=== PATIENT | female | born 1975 | race Caucasian/White ===

== ENCOUNTER 2018-09-18 18:46 | Emergency (ER) | payer SELFPAY ==
[~2018-09-18] VITALS: Ht 154.9 cm; Wt 55.3 kg
[2018-09-18 18:50] VITALS: BP 131/85
[2018-09-18 19:00] VITALS: BP 131/85
--- NOTE | 2018-09-18 19:00 | NUR ---
BIB SELF. AAO X4 C/O NAUSEA, GENERALIZED ABD BURNING PAIN, BACK PAIN, MIDCHEST PAIN X YESTERDAY. PT REPORTS PAINFUL URINATION. WENT TO [facility] YESTERDAY & GOT A SHOT FOR PAIN. PT STATED SHE IS FROM [facility] AND CAN NOT TAKE NARCOTIC PAIN MEDS. PT DENIES SOB, FEVER, VOMITING. STEADY GAIT. HOB UP. BED SIDE RAILS UP X1. ON LOW BED POSITION, LOCKED. ER MADE AWARE OF PT STATUS.
--- NOTE | 2018-09-18 19:07 | NUR ---
TAMICA CARRERA AT BEDSIDE FOR PT EVAL
[2018-09-18] MEDS ORDERED: ALUMINUM HYD/MAG/SIMETHICONE 30 ML, DICYCLOMINE HCL LIQUID 20 MG, LIDOCAINE VISCOUS 2% ... PO ONE ×3 (19:20)
[2018-09-18 19:25] LABS: BILIRUBIN,URINE NEGATIVE (NEGATIVE); BLOOD, URINE NEGATIVE (NEGATIVE); COLOR,URINE YELLOW (YELLOW); LEUKOCYTE ESTERASE ,URINE 2+ (NEGATIVE); NITRITE, URINE POSITIVE (NEGATIVE); PH,URINE 7.5 (5.0-9.0); UGLUCOSE TRACE (NEGATIVE)
[2018-09-18] MEDS ORDERED: KETOROLAC 30 MG/ML VIAL IM ONE (19:25)
[2018-09-18 19:26] LABS: APPEARANCE,URINE HAZY (CLEAR)
[2018-09-18 19:31] LABS: RBC,URINE 0-5 /HPF (0-5); WBC,URINE 16-25 (MOD) /HPF (0-5)
[2018-09-18 19:32] LABS: TRICHOMONAS,URINE Few /HPF (None Seen)
[2018-09-18 19:51] LABS: BASOPHILS # (AUTO) 0.1 K/uL (0.00-0.22); BASOPHILS % (AUTO) 1.6 % (0.0-2.0); EOSINOPHILS # (AUTO) 0.2 K/uL (0-0.4); EOSINOPHILS % (AUTO) 1.9 % (0.0-4.0); HEMATOCRIT 39.7 % (36-48); LYMPHOCYTES # (AUTO) 0.9 K/uL (2.5-16.5); LYMPHOCYTES % (AUTO) 10.7 % (20.5-51.1); MEAN CORPUSCULAR HEMOGLOBIN 26 pg (27-31); MEAN CORPUSCULAR HGB CONC 33 g/dL (33-37); MEAN CORPUSCULAR VOLUME 79.2 fL (80-94); MONOCYTES # (AUTO) 0.5 K/uL (0.8-1.0); MONOCYTES % (AUTO) 5.4 % (1.7-9.3); NEUTROPHILS # (AUTO) 6.9 K/uL (1.8-7.7); NEUTROPHILS % (AUTO) 80.4 % (42.2-75.2); PLATELET COUNT (AUTO) 247 K/uL (140-450); RED BLOOD CELL COUNT(AUTO) 5.01 MIL/uL (4.20-5.40); WHITE BLOOD COUNT (AUTO) 8.6 K/uL (4.8-10.8)
[2018-09-18 19:52] LABS: ANION GAP 10.1 (8-16); CARBON DIOXIDE 29.9 mmol/L (21-32); CREATININE 0.6 mg/dL (0.6-1.3)
[2018-09-18 19:58] LABS: ALBUMIN 3.8 g/dL (3.4-5.0); TOTAL BILIRUBIN 0.2 mg/dL (0.0-1.0)
== END 2018-09-18 20:05 | disposition home or self-care (01) ==
LOC: MED 18:46
DX: N39.0 Urinary tract infection, site not specified (principal); I10 Essential (primary) hypertension; F41.9 Anxiety disorder, unspecified
CPT/HCPCS: 36415; 80053; 81001; 81025; 83690; 85025; 87086; 96372; 99283; J1885

== ENCOUNTER 2018-10-06 18:55 | Inpatient (IN) | payer MEDICAID ==
[~2018-10-06] VITALS: Ht 152.4 cm; Wt 54.4 kg
[2018-10-06 19:09] VITALS: BP 176/109
--- NOTE | 2018-10-06 19:26 | NUR ---
42 YEAR OLD FEMALE BROUGHT IN BY SELF C/O OF CHEST PAIN THAT RADIATES TO THE RIGHT SHOULDER SINCE 5AM TODAY. PT PAIN LEVEL IS 7/10. Addendum: 10/06/18 at 1931 by [email or web address] 42 YEAR OLD FEMALE BROUGHT IN BY SELF C/O OF CHEST PAIN THAT RADIATES TO THE RIGHT SHOULDER SINCE 5AM TODAY. PT PAIN LEVEL IS 7/10. A&O X4 MED HX OF HTN CURRENT BP 177/101. SAFETY MEASURES IN PLACE. WAITING FOR MD TO EVALUATE PT. EMD MADE AWARE OF STATUS.
--- NOTE | 2018-10-06 19:35 | NUR ---
EKG PERFORMED AT BEDSIDE
[2018-10-06] MEDS ORDERED: ENALAPRILAT 2.5 MG/2 ML VIAL IVP ONE (19:45)
[2018-10-06] MEDS ORDERED: hydrALAZINE 20 MG/ML VIAL IVP ONE (19:45)
--- NOTE | 2018-10-06 21:03 | NUR ---
RAD AT BEDSIDE
[2018-10-06 21:17] LABS: BASOPHILS # (AUTO) 0.1 K/uL (0.00-0.22); BASOPHILS % (AUTO) 0.6 % (0.0-2.0); EOSINOPHILS # (AUTO) 0.1 K/uL (0-0.4); HEMATOCRIT 43.4 % (36-48); HEMOGLOBIN 14.4 g/dL (12.0-16.0); LYMPHOCYTES # (AUTO) 2.5 K/uL (2.5-16.5); LYMPHOCYTES % (AUTO) 25.8 % (20.5-51.1); MEAN CORPUSCULAR HEMOGLOBIN 27 pg (27-31); MEAN CORPUSCULAR HGB CONC 33 g/dL (33-37); MEAN CORPUSCULAR VOLUME 80.3 fL (80-94); MONOCYTES # (AUTO) 0.7 K/uL (0.8-1.0); NEUTROPHILS # (AUTO) 6.4 K/uL (1.8-7.7); NEUTROPHILS % (AUTO) 65.6 % (42.2-75.2); PLATELET COUNT (AUTO) 324 K/uL (140-450); RED CELL DISTRIBUTION WIDTH 19.7 % (11.6-13.7); WHITE BLOOD COUNT (AUTO) 9.7 K/uL (4.8-10.8)
[2018-10-06] MEDS ORDERED: NITROGLYCERIN 2% 1 GM PKT TP ONE (21:30)
[2018-10-06] MEDS ORDERED: ASPIRIN 325 MG TAB PO ONE (21:30)
[2018-10-06] MEDS ORDERED: MORPHINE SULFATE 4 MG/ML SYR IVP ONE (21:30)
[2018-10-06 21:32] LABS: ANION GAP 14.3 (8-16); CREATININE 0.6 mg/dL (0.6-1.3); POTASSIUM 3.3 mmol/L (3.5-5.1)
[2018-10-06 21:37] LABS: ALBUMIN 4.3 g/dL (3.4-5.0); TOTAL BILIRUBIN 0.4 mg/dL (0.0-1.0)
[2018-10-06] MEDS ORDERED: KETOROLAC 30 MG/ML VIAL IVP ONE (22:10)
[2018-10-06] MEDS ORDERED: ONDANSETRON 4 MG/2 ML VIAL IVP PRN (22:15)
[2018-10-06] MEDS ORDERED: HYDROcodone/APAP 7.5/325 MG 1 TAB PO PRN (22:15)
[2018-10-06] MEDS ORDERED: NITROGLYCERIN 0.4 MG TAB SL PRN (22:20)
--- NOTE | 2018-10-06 22:40 | NUR ---
Patient will be admitted to care of Dr Keys. Admited to Tele. Will go to room 120A. Belongings list completed. Report to Cruz GLOVER. PT VSS.
[2018-10-06 22:45] VITALS: BP 128/58
--- NOTE | 2018-10-06 22:45 | NUR ---
RECEIVED PT FROM ER NURSE. PT ABLE TO AMBULATE FROM ER BED TO [facility] BED. NO SOB OR ANY RESPIRATORY DISTRESS NOTED. ON TELE MONITORING. DX: HYPERTENSIVE URGENCY ANGINA. ORIENT ROOM TO PT. SWAB NOSE. SKIN INTACT, WARM AND DRY TO TOUCH. IV SITE ON R AC, 20G, PATENT, INTACT, AND ASYMPTOMATIC. PT C/O HEADACHE, 06/24, WILL MEDICATE. NITRO PATCH REMOVED BY RESIDENT DR. MELGAR. BED IN LOW POSITION, CALL LIGHT WITHIN REACH.
--- NOTE | 2018-10-06 22:48 | NUR ---
Pt report given to Cruz GLOVER. Transfer of care at this time. PT VSS. PT pain level decreased 3/10 prior to transfer.
[2018-10-06 22:53] LABS: PROTHROMBIN TIME 11.6 secs (10.8-13.4)
[2018-10-06 22:59] LABS: FREE T4 (FREE THYROXINE) 1.16 ng/dL (0.76-1.46); MAGNESIUM 1.9 mg/dL (1.8-2.4); THYROID STIMULATING HORMONE 1.98 uIU/mL (0.34-3.74)
[2018-10-06] MEDS ORDERED: POTASSIUM CHLORIDE 10 MEQ TABER PO SCH (23:00)
[2018-10-06] MEDS: ACETAMINOPHEN 325 MG TAB PO PRN (23:13)
--- NOTE | 2018-10-06 23:17 | NUR ---
GIVEN K DUR, HEPARIN AND TYLENOL ORDERED. PT TOLERATED WELL. WILL CONTINUE TO MONITOR.
[2018-10-07] VITALS: BP 92/59
--- NOTE | 2018-10-07 01:30 | NUR ---
PT SLEEPING IN BED. NO ACUTE DISTRESS NOTED. WILL CONTINUE TO MONITOR.
--- NOTE | 2018-10-07 03:45 | NUR ---
PT SLEEPING IN BED. NO ACUTE DISTRESS NOTED. WILL CONTINUE TO MONITOR.
[2018-10-07 04:00] VITALS: BP 105/65
--- NOTE | 2018-10-07 05:50 | NUR ---
PT SLEEPING IN BED. NO SOB NOTED. BREATHING EVEN AND UNLABORED. BED IN LOW POSITION. CALL LIGHT WITHIN REACH.
[2018-10-07 07:10] LABS: ANION GAP 12.8 (8-16); CARBON DIOXIDE 29.1 mmol/L (21-32); CREATININE 0.9 mg/dL (0.6-1.3); POTASSIUM 3.9 mmol/L (3.5-5.1)
[2018-10-07 07:16] LABS: BASOPHILS % (AUTO) 0.3 % (0.0-2.0); EOSINOPHILS # (AUTO) 0.2 K/uL (0-0.4); EOSINOPHILS % (AUTO) 2.6 % (0.0-4.0); HEMATOCRIT 42.7 % (36-48); HEMOGLOBIN 14.4 g/dL (12.0-16.0); LYMPHOCYTES # (AUTO) 2.1 K/uL (2.5-16.5); LYMPHOCYTES % (AUTO) 27.9 % (20.5-51.1); MEAN CORPUSCULAR HEMOGLOBIN 27 pg (27-31); MEAN CORPUSCULAR HGB CONC 34 g/dL (33-37); MEAN CORPUSCULAR VOLUME 80.5 fL (80-94); MONOCYTES # (AUTO) 0.5 K/uL (0.8-1.0); MONOCYTES % (AUTO) 7.1 % (1.7-9.3); NEUTROPHILS # (AUTO) 4.7 K/uL (1.8-7.7); NEUTROPHILS % (AUTO) 62.1 % (42.2-75.2); PLATELET COUNT (AUTO) 306 K/uL (140-450); RED CELL DISTRIBUTION WIDTH 19.4 % (11.6-13.7); WHITE BLOOD COUNT (AUTO) 7.5 K/uL (4.8-10.8)
[2018-10-07 07:24] LABS: PHOSPHORUS 4.8 mg/dL (2.5-4.9)
--- NOTE | 2018-10-07 07:25 | NUR ---
ENDORSED PT TO DAY SHIFT NURSE. PT IN STABLE CONDITION.
--- NOTE | 2018-10-07 07:35 | NUR ---
URINE SAMPLE WAS COLLECTED AND SENT TO LAB
--- NOTE | 2018-10-07 07:40 | NUR ---
PATIENT WAS RESTING COMFORTABLY. RESPIRATION EVEN, UNLABOR ON ROOM AIR. SKIN DRY AND WARM. IV PATENT AND INTACT. DENIED CP, SOB. PLAN OF CARE WAS DISCUSSED WITH PATIENT. BED AT LOW POSITION, SIDE RAILS UP. CALL LIGHT WITHIN REACH.
[2018-10-07 08:00] VITALS: BP 114/72
[2018-10-07 08:00] LABS: APPEARANCE,URINE SL CLOUDY (CLEAR); BILIRUBIN,URINE NEGATIVE (NEGATIVE); BLOOD, URINE NEGATIVE (NEGATIVE); COLOR,URINE YELLOW (YELLOW); LEUKOCYTE ESTERASE ,URINE 3+ (NEGATIVE); NITRITE, URINE NEGATIVE (NEGATIVE); UGLUCOSE NEGATIVE (NEGATIVE)
[2018-10-07 08:07] LABS: BARBITURATE, URINE NEG. ng/ml (NEG <=200); BENZODIAZEPINE, URINE NEG. ng/mL (NEG <=200); CANNABINOID, URINE NEG. ng/mL (NEG <=50); COCAINE, URINE NEG. ng/mL (NEG <=300); OPIATE, URINE NEG. ng/mL (NEG <=2000); PHENCYCLIDINE SCREEN,URINE NEG. ng/mL (NEG <=25)
[2018-10-07] MEDS ORDERED: ORE25 PO (08:08)
[2018-10-07 08:13] LABS: RBC,URINE 0-5 /HPF (0-5); WBC,URINE 60-80 /HPF (0-5)
[2018-10-07 08:14] LABS: TRICHOMONAS,URINE Rare /HPF (None Seen)
[2018-10-07] MEDS: LISINOPRIL 5 MG TAB PO SCH (08:38)
[2018-10-07] MEDS: METOPROLOL 25 MG TAB PO SCH ×2 (08:38→20:57)
[2018-10-07] MEDS: ATORVASTATIN 20 MG TAB PO SCH (08:38)
[2018-10-07] MEDS: ECOTRIN 81 MG TABEC PO SCH (08:38)
[2018-10-07] MEDS: DOCUSATE SODIUM 100 MG GELCAP PO SCH ×2 (08:39→20:57)
[2018-10-07] MEDS ORDERED: POTASSIUM CHLORIDE 40 MEQ, LIDOCAINE MPF 1% - 5 mL VIAL 25 MG in NACL 0.9% 250 ML IV ONE (09:20)
[2018-10-07] MEDS ORDERED: MAG SULF 2000 MG/WATER PREMIX 50 ML IV ONE (09:20)
--- NOTE | 2018-10-07 09:37 | NUR ---
DR. MARCELO WAS MADE AWARE OF PATIENT'S BP 91/32. OK TO CONTINUE TO MONITOR Addendum: 10/07/18 at 0938 by Leyda Nuñez RN WRONG PATIENT
--- NOTE | 2018-10-07 09:52 | NUR ---
PATIENT WAS AWAKE, ALERT, RESTING COMFORTABLY. RESPIRATION EVEN, UNLABOR ON ROOM AIR. NO DISTRESS NOTED AT THIS TIME
[2018-10-07] MEDS ORDERED: metroNIDAZOLE 500 MG TAB PO SCH (10:00)
[2018-10-07 12:00] VITALS: BP 94/61
--- NOTE | 2018-10-07 12:00 | NUR ---
PATIENT WAS SLEEPING COMFORTABLY. RESPIRATION EVEN, UNLABOR ON ROOM AIR. DENIED PAIN AT THIS TIME. NO DISTRESS NOTED. CALL LIGHT WITHIN REACH
--- NOTE | 2018-10-07 14:19 | NUR ---
PATIENT WAS AWAKE, ALERT, EATING COMFORTABLY. RESPIRATION EVEN, UNLABOR ON ROOM AIR. NO DISTRESS NOTED AT THIS TIME.
[2018-10-07 16:00] VITALS: BP 94/60
--- NOTE | 2018-10-07 16:00 | NUR ---
PATIENT WAS RESTING COMFORTABLY. RESPIRATION EVEN, UNLABOR ON ROOM AIR. NO DISTRESS NOTED AT THIS TIME. DENIED PAIN, SOB. CALL LIGHT WITHIN REACH
--- NOTE | 2018-10-07 18:13 | NUR ---
PATIENT WAS AWAKE, ALERT. IV PATENT AND INTACT. NO DISTRESS NOTED AT THIS TIME. FAMILY AT BEDSIDE
--- NOTE | 2018-10-07 19:14 | NUR ---
ENDORSEMENT GIVEN TO MAINTENANCE TRUCK DRIVER NURSE. PATIENT IS STABLE AT THIS TIME
--- NOTE | 2018-10-07 19:15 | NUR ---
RECEIVED BEDSIDE REPORT FROM DAY SHIFT NURSE JELLY. PATIENT IS AWAKE, ALERT, AND COOPERATIVE. RESPIRATION EVEN UNLABORED ON ROOM AIR. NO DISTRESS NOTED. SKIN IS WARM AND DRY. IV SALINE LOCK. PATIENT IS AMBULATORY AND ABLE TO MAKE NEEDS KNOWN. FAMILY AT BEDSIDE. PLAN OF CARE WAS DISCUSSED. ALL SAFETY MEASURES IN PLACE. BED IS AT LOW POSITION. CALL LIGHT WITHIN REACH AND VERBALIZES ITS USE. WILL CONTINUE TO MONITOR.
[2018-10-07 20:00] VITALS: BP 100/68
--- NOTE | 2018-10-07 20:00 | NUR ---
INITIAL ASSESSMENT DONE. VITALS WERE TAKEN. PATIENT IS IN STABLE CONDITION. WILL CONTINUE TO MONITOR.
--- NOTE | 2018-10-07 21:00 | NUR ---
ALL SCHEDULED MEDS WERE GIVEN. NO ASE NOTED. WILL CONTINUE TO MONITOR.
[2018-10-07] MEDS: ACETAMINOPHEN 325 MG TAB PO PRN (21:26)
--- NOTE | 2018-10-07 21:26 | NUR ---
PATIENT COMPLAINED OF HEADACHE 6/10 PRN PAIN MED ADMINISTERED PER ORDER. WILL CONTINUE TO MONITOR.
--- NOTE | 2018-10-07 22:33 | NUR ---
CHECKED PATIENT. PATIENT SLEEPING RESPIRATION EVEN UNLABORED ON ROOM AIR. NO DISTRESS NOTED. WILL CONTINUE TO MONITOR.
[2018-10-08] VITALS: BP 101/67
--- NOTE | 2018-10-08 | NUR ---
VITALS WERE TAKEN. PATIENT CONDITION STABLE. NO DISTRESS NOTED. WILL CONTINUE TO MONITOR
--- NOTE | 2018-10-08 02:00 | NUR ---
CHECKED PATIENT. PATIENT SLEEPING RESPIRATION EVEN UNLABORED ON ROOM AIR. NO DISTRESS NOTED. WILL CONTINUE TO MONITOR.
[2018-10-08 04:00] VITALS: BP 93/63
--- NOTE | 2018-10-08 04:00 | NUR ---
VITALS WERE TAKEN. PATIENT CONDITION STABLE. NO DISTRESS NOTED. WILL CONTINUE TO MONITOR.
--- NOTE | 2018-10-08 07:20 | NUR ---
ENDORSED PATIENT TO COUNTER PERSON NURSE. PATIENT IS STABLE AT THIS TIME
--- NOTE | 2018-10-08 07:21 | NUR ---
RECEIVED REPORT FROM PARADICHLOROBENZENE TENDER NURSE. PATIENT LYING DOWN IN BED SLEEPING, AROUSABLE BY VOICE. NO DISTRESS NOTED. DENIES ANY PAIN. AAOX4, CALM, COOPERATIVE, SKIN COLOR APPROPRIATE TO ETHNICITY, WARM TO TOUCH. SKIN INTACT. IV SITE INTACT, PATENT, AND ON SALINE LOCK. RESPIRATIONS EVEN, UNLABORED, ON ROOM AIR. ABDOMEN SOFT, NON-DISTENDED. REVIEWED PLAN OF CARE WITH PATIENT. PATIENT VERBALIZED UNDERSTANDING. SAFETY MEASURES IN PLACE, CALL LIGHT WITHIN REACH. WILL CONTINUE TO MONITOR.
[2018-10-08 08:00] VITALS: BP 104/76
--- NOTE | 2018-10-08 08:33 | NUR ---
PATIENT HAS BEEN SCREENED AND CATEGORIZED MODERATE NUTRITION RISK. PATIENT WILL BE SEEN WITHIN 3-5 DAYS OF ADMISSION. 10/09/18[address]
[2018-10-08] MEDS: METOPROLOL 25 MG TAB PO SCH (08:34)
[2018-10-08] MEDS: LISINOPRIL 5 MG TAB PO SCH (08:34)
[2018-10-08] MEDS: ATORVASTATIN 20 MG TAB PO SCH (08:34)
[2018-10-08] MEDS: DOCUSATE SODIUM 100 MG GELCAP PO SCH (08:34)
[2018-10-08] MEDS: ECOTRIN 81 MG TABEC PO SCH (08:34)
--- NOTE | 2018-10-08 08:39 | NUR ---
PATIENT SITTING IN BED WITH BREAKFAST TRAY IN FRONT. NO DISTRESS NOTED. DENIES ANY PAIN. SCHEDULED MEDICATIONS DUE GIVEN. WILL CONTINUE TO MONITOR.
--- NOTE | 2018-10-08 10:30 | NUR ---
PATIENT LYING DOWN IN BED SLEEPING, AROUSABLE BY VOICE. NO DISTRESS NOTED. CONDITION UNCHANGED. WILL CONTINUE TO MONITOR.
[2018-10-08] MEDS ORDERED: LACT10CA1 PO (10:45)
[2018-10-08] MEDS ORDERED: CEPH250C16 PO (10:45)
[2018-10-08 12:00] VITALS: BP 97/68
--- NOTE | 2018-10-08 12:58 | NUR ---
PATIENT SITTING DOWN IN BED ALL DRESSED UP AND READY TO GO. FAMILY MEMBER AT BEDSIDE. DISCHARGE INSTRUCTIONS PROVIDED TO PATIENT IN PREFERRED LANGUAGE OF [facility]. INSTRUCTIONS ON FOLLOW-UP VISIT WITH PCP, NEW/CHANGED MEDICATION REGIMEN AND SIDE EFFECTS, TRICHOMONAS STI, AND DIET REGIMEN PROVIDED. ANSWERED ALL OF PATIENT/FAMILY QUESTIONS REGARDING DISCHARGE. PATIENT/FAMILY VERBALIZED UNDERSTANDING. IV SITE REMOVED WITH MINIMAL BLOOD AND LUMEN COMPLETELY INTACT. ID BANDS REMOVED. PATIENT TO FINISH EATING LUNCH THEN GO HOME VIA PRIVATE VEHICLE. WILL CONTINUE TO MONITOR.
== END 2018-10-08 13:10 | disposition home or self-care (01) | DRG 812 ==
LOC: MED 18:55 → MTU 22:20
PROVIDERS: ADMIT General Practice; ATTEND General Practice
DX: T43.621A Poisoning by amphetamines, accidental (unintentional), initial encounter (principal); A59.9 Trichomoniasis, unspecified; E78.5 Hyperlipidemia, unspecified; E87.6 Hypokalemia; F15.10 Other stimulant abuse, uncomplicated; N39.0 Urinary tract infection, site not specified; I16.0 Hypertensive urgency; F17.200 Nicotine dependence, unspecified, uncomplicated; I10 Essential (primary) hypertension; Z98.891 History of uterine scar from previous surgery; Y92.89 Other specified places as the place of occurrence of the external cause
CPT/HCPCS: 36415; 71045; 80048; 80053; 80305; 81001; 82150; 83036; 83690; 83735; 83880; 84100; 84439; 84443; 84484; 85025; 85379; 85610; 85730; 87081; 87086; 93005; 96374; 96375; 99285; J0360; J0696; J1644; J1885; J2270; J3490; J7030; J7060

== ENCOUNTER 2018-11-14 21:44 | Emergency (ER) | payer MEDICAID ==
[~2018-11-14] VITALS: Ht 154.9 cm; Wt 52.7 kg
[~2018-11-14 21:44] MED LIST: CEPH250C16 PO; LACT10CA1 PO; ORE25 PO
[2018-11-14 21:45] VITALS: BP 157/98
--- NOTE | 2018-11-14 21:45 | NUR ---
TO BED # 02 AMBULATORY
--- NOTE | 2018-11-14 21:45 | NUR ---
43 Y/O FEMALE PRESENTS TO ED WITH C/O LEFT FLANK PAIN 5/10. LAST BM X3 DAYS AGO. NASUEA WITHOUT VOMITING. NO CHANGE IN URINATION. ABD SOFT AND NON-TENDER. VSS. POSITIONED IN BED FOR COMFORT. ER MD AWARE. CONTINUE TO MONITOR.
[2018-11-14 22:30] LABS: APPEARANCE,URINE CLEAR (CLEAR); BILIRUBIN,URINE NEGATIVE (NEGATIVE); BLOOD, URINE TRACE-I (NEGATIVE); COLOR,URINE YELLOW (YELLOW); LEUKOCYTE ESTERASE ,URINE TRACE (NEGATIVE); NITRITE, URINE NEGATIVE (NEGATIVE); PH,URINE 6.5 (5.0-9.0); UGLUCOSE NEGATIVE (NEGATIVE)
[2018-11-14 22:48] LABS: RBC,URINE NONE SEEN /HPF (0-5); WBC,URINE 0-5 /HPF (0-5)
[2018-11-15] MEDS ORDERED: MAGNESIUM CITRATE 300 ML BTL PO ONE
--- NOTE | 2018-11-15 00:02 | NUR ---
PT DRANK MAG CITRATE. CONTINUE TO MONITOR.
[2018-11-15 00:11] VITALS: BP 133/75
--- NOTE | 2018-11-15 00:11 | NUR ---
DISCHARGE PAPERS GIVEN TO PT. STATES 2/10 TOLLERABLE PAIN. RX OF LACTULOSE GIVEN. SIDE EFFECTS EXPLAINED. INSTRUCTED TO F/U WITH PCP AND WHEN TO RETURN TO ER. PT VERBALLIZED UNDERSTANDING OF DC INSTRUCTIONS. ALL QUESTIONS ANSWERED.
== END 2018-11-15 00:11 | disposition home or self-care (01) ==
LOC: MED 21:44
DX: K59.00 Constipation, unspecified (principal); I10 Essential (primary) hypertension; Z87.442 Personal history of urinary calculi; Z79.899 Other long term (current) drug therapy
CPT/HCPCS: 81001; 81025; 99284

== ENCOUNTER 2019-01-09 22:23 | Emergency (ER) | payer SELFPAY ==
[~2019-01-09] VITALS: Ht 154.9 cm; Wt 50.8 kg
[2019-01-09 22:33] VITALS: BP 118/115
--- NOTE | 2019-01-09 22:38 | NUR ---
PT TAKEN TO BED 1
[2019-01-09] MEDS ORDERED: KETOROLAC 60 MG/2 ML VIAL IM ONE (22:55)
--- NOTE | 2019-01-09 23:03 | NUR ---
X-Ray at bedside.
--- NOTE | 2019-01-09 23:22 | NUR ---
43 Y/O FEMALE. PRESENTS TO ED, C/O LEFT ARM PAIN DUE TO FALL AND MULTIPLE ABRASIONS ON RIGHT KNEE, AND LEFT HIP. PT STATES FALLING OFF SKATEBOARD. DENIES HITTING HEAD. RIGHT ARM HAS SWELLING, LIMITED ROM, WEAK TRADITIONAL CHINESE HERBALIST STRENGTH. BILAT STRONG EQUAL RADIAL PULSES. PT STATES PAIN IS 10/10. DENIES TAKING MEDICATIONS TO ALLEVIATE PAIN. PT VSS. ERMD AWARE. WILL CONTINUE TO MONITOR.
[2019-01-10 01:00] VITALS: BP 151/83
--- NOTE | 2019-01-10 01:00 | NUR ---
Patient discharged with v/s stable. Written and verbal after care instructions given and explained. Patient alert, oriented and verbalized understanding of instructions. Ambulatory with steady gait. All questions addressed prior to discharge. ID band removed. Patient advised to follow up with PMD. Rx of CIPRO 500MG AND MOTRIN 600MG given. Patient educated on indication of medication including possible reaction and side effects. Opportunity to ask questions provided and answered.
== END 2019-01-10 01:00 | disposition home or self-care (01) ==
LOC: MED 22:23
DX: S60.812A Abrasion of left wrist, initial encounter (principal); S80.212A Abrasion, left knee, initial encounter; N39.0 Urinary tract infection, site not specified; I10 Essential (primary) hypertension; Z79.2 Long term (current) use of antibiotics; Z79.899 Other long term (current) drug therapy; W18.39XA Other fall on same level, initial encounter; Y93.89 Activity, other specified; Y92.89 Other specified places as the place of occurrence of the external cause; Y99.8 Other external cause status
CPT/HCPCS: 73110; 81002; 81025; 96372; 99283; J1885; Q0092